=== PATIENT | female | born 1980 | race Caucasian/White ===

== ENCOUNTER → 2019-09-17 15:46 | Outpatient (CLI) | payer OTHER, MEDICAID, SELFPAY | PROVIDERS: Family Provider Obstetrics & Gynecology; Visit Provider Nurse Practitioner | DX: J02.9 Acute pharyngitis, unspecified (principal) | CPT/HCPCS: 87070 ==

== ENCOUNTER 2022-08-24 13:14 | Emergency (ER) | payer OTHER, MEDICAID, SELFPAY ==
[2022-08-24] VITALS (13 sets, daily range): BP systolic 142–171; BP diastolic 65–96; PULSE 72–109; RESP 16–20; TEMP 36.5; O2SAT 95–99; BMI 42.7
--- NOTE | 2022-08-24 13:34 | DI.CT.S_ITS ---
PROCEDURE: CT HEAD/BRAIN WO CON INDICATIONS: dizziness, blurry vision TECHNIQUE: Noncontrast 4.5 mm thick angled axial sections acquired from the foramen magnum to the vertex, with coronal and sagittal reformats. For radiation dose reduction, the following was used: automated exposure control, adjustment of mA and/or kV according to patient size. COMPARISON: None. FINDINGS: Image quality: Excellent. CSF spaces: Basal cisterns are patent. No extra-axial fluid collections. Ventricles are normal in size and shape. Brain: No midline shift. No intracranial masses or hemorrhage. [place]-white matter interface is normal. Skull and face: Calvarium and visualized facial bones are intact, without suspicious lesions. Sinuses: Visualized sinuses and mastoids are clear. IMPRESSION: No evidence acute intracranial process. Dictated by: Palmer Melendrez M.D. on 08/24/2022 at 14:05 Approved by: Palmer Melendrez M.D. on 08/24/2022 at 14:05
[2022-08-24 14:38] LABS: Add Manual Diff / Slide Review NO; Basophils Absolute Auto 0 /uL (0-100); Basophils Percent Auto 0.5 % (0-2); Eosinophils Absolute Auto 100 /uL (0-450); Eosinophils Percent Auto 0.8 % (2-4); Hematocrit 39.3 % (36-46); Hemoglobin 13.3 g/dL (12.0-16.0); Lymphocytes Absolute Auto 2100 /uL (1100-4500); Mean Corpuscular HGB Conc 33.9 % (30-36); Mean Corpuscular Hemoglobin 30.8 PG (26-34); Monocytes Absolute Auto 500 /uL (0-900); Monocytes Percent Auto 5.8 % (3-14); Neutrophils Absolute Auto 6000 /uL (1500-7000); Neutrophils Percent Auto 68.9 % (50-75); Platelet Count 318 X10^3/uL (150-400); Red Blood Cell Count 4.31 X10^6/uL (4.0-5.2); White Blood Cell Count 8.7 X10^3/uL (4.5-11.0)
[2022-08-24 14:51] LABS: Alanine Aminotransferase 18 IU/L (<35); Albumin 4.2 g/dL (3.5-5.0); Albumin Globulin Ratio 1.1 (1.0-2.8); Alkaline Phosphatase 104 U/L (38-126); Aspartate Aminotransferase 19 IU/L (14-36); BUN Creatinine Ratio 24.6 (6-22); Bilirubin Total 0.4 mg/dL (0.2-1.3); Blood Urea Nitrogen 15 mg/dL (7-17); Calcium 9.1 mg/dL (8.4-10.2); Carbon Dioxide 24 mmol/L (22-32); Chloride 105 mmol/L (98-107); Estimated Glomerular Filt Rate > 60 mL/min (>60); Globulin 3.9 g/dL (1.7-4.1); Glucose 90 mg/dL (70-100); HEMOLYSIS < 15 (0-50); Potassium 3.8 mmol/L (3.4-5.1); Sodium 138 mmol/L (137-145); Total Protein 8.1 g/dL (6.3-8.2)
--- NOTE | 2022-08-24 15:33 | DI.CT.S_ITS ---
PROCEDURE: CT ANGIO HEAD AND NECK INDICATIONS: speech difficulty TECHNIQUE: After the administration of intravenous contrast, 1 mm thick sections acquired from the aortic arch through the [place] of [place]. Post-contrast 4.5 mm thick sections then re-acquired from the foramen magnum to the vertex. 3-dimensional wbjstsv-snlkngjeg-xefaomhfzl (MIP) and/or volume rendering reformats were acquired of the central intracranial vasculature and neck separately. For radiation dose reduction, the following was used: automated exposure control, adjustment of mA and/or kV according to patient size. COMPARISON: [facility], CT, CT HEAD/BRAIN WO CON, 08/24/2022, 13:46. FINDINGS: Image quality: Excellent. BRAIN: CSF spaces: Ventricles are normal in size and shape. Basal cisterns are patent. No extra-axial fluid collections. Brain: No midline shift. No intracranial bleeds or masses. [place]-white matter interface appears intact. Skull and face: Calvarium and facial bones appear intact, without suspicious lesions. Orbits appear normal. Sinuses: Sinuses and mastoids are clear. HEAD CT ANGIOGRAPHY: Anterior circulation: Intracranial internal carotid arteries are normal in size and flow. The flow within the paired anterior cerebral arteries is normal and symmetric. The flow within the middle cerebral arteries is normal and symmetric. The anterior communicating artery is seen. No aneurysms are seen. Posterior circulation: The vertebral arteries are somewhat small. The left vertebral artery is dominant. The right vertebral artery is diminutive, and either ends in PICA or has a thrombosed V4 segment. The distal right vertebral artery at the V4 segment occludes. The proximal basilar artery is patent. There is a long segment occlusion or a combination of occlusion followed by minimal flow of the basilar artery which measures approximately 1.5 cm. The bilateral posterior cerebral arteries have a origin of the anterior circulation. Flow within the posterior cerebral arteries is normal and symmetric. No aneurysms are seen. NECK CT ANGIOGRAPHY: Carotid system: The great vessels demonstrate a conventional anatomy as they arise from the aortic arch. The origins of the common carotid arteries appear patent. The common carotid arteries demonstrate normal caliber and courses. The bifurcation regions are both widely patent. The internal carotid arteries demonstrate normal calibers and courses. Posterior circulation: The origins of the vertebral arteries are patent. The right vertebral artery is dominant and the left vertebral artery is diminutive. Both vertebral arteries are somewhat small. The right vertebral artery either ends in PICA or is occluded distally. The basilar artery is fed by the left vertebral artery. It is a small vessel and has either a long segment occlusion or occlusive embolus followed by minimal flow superiorly. Soft tissues: Visualized neck soft tissues demonstrate no suspicious abnormalities. Bones: No suspicious bony lesions. Visualized cervical spine appears normally aligned. IMPRESSION: 1. No evidence acute stroke, hemorrhage, or mass. 2. 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 There is origin of both posterior cerebral arteries from the anterior circulation. 3. The vertebral arteries are both somewhat diminutive. The left vertebral artery is dominant and the right vertebral artery is more diminutive. The right vertebral artery either ends in PICA or is thrombosed from its V4 segment. 4. The origins of the vertebral arteries are patent. The carotids are patent. Comment: Findings were discussed with Dr. Pearson on 08/24/2022 at 1626 hours Any quantitative measurements of stenosis were performed using NASCET criteria. Dictated by: Palmer Melendrez M.D. on 08/24/2022 at 16:25 Approved by: Palmer Melendrez M.D. on 08/24/2022 at 16:38
--- NOTE | 2022-08-24 15:35 | ED_ITS ---
HPI - Neuro Symptoms/Deficit General Chief Complaint: Dizziness Stated Complaint: dizzy/LT side of face hurts twitchy,blurred vision Time Seen by Provider: 08/24/22 14:44 Mode of arrival: Family Vehicle History of Present Illness HPI Narrative: Patient is a 42-year-old healthy female who presents today with Wednesday of symptoms. She says she was walking through [place] when she had some right- sided numbness and some left-sided blurry vision. She felt like her speech was abnormal as well. reports that she was talking gibberish she feels like her speech is slurred and that she is intoxicated. She is no longer having the symptoms. Symptoms started around 12 15 this afternoon. Resolved. No prior history of CVA hypertension hyperlipidemia or diabetes. On Anticoagulants: No Related Data Home Medications Medication Instructions Recorded Confirmed IBUPROFEN (#MOTRIN) 800 mg PO Q DAY PRN ##0 05/05/11 09/17/19 Allergies Allergy/AdvReac Type Severity Reaction Status Date / Time No Known Drug Allergies Allergy Verified 08/24/22 15:49 Review of Systems Review of Systems ROS Unobtainable: All systems reviewed & are unremarkable except as noted in HPI and below Hematologic/Lymphatic On Anticoagulants: No Patient History Social History Smoking Status: Former smoker Smoking Status: Former smoker Substance Use Type: does not use Exam Initial Vital Signs Initial Vital Signs: Vital Signs Temperature 97.7 F 08/24/22 13:26 Pulse Rate 72 08/24/22 13:26 Respiratory Rate 16 08/24/22 13:26 Blood Pressure 142/75 H 08/24/22 13:26 Pulse Oximetry 98 08/24/22 13:26 Oxygen Delivery Method 08/24/22 13:26 GENERAL: Alert tearful 42-year-old female BMI 36 and in no acute distress. HEENT: Head atraumatic,EOMI, pupils reactive, face symmetric, moist mucous membranes CARDIOVASCULAR: Regular rate and rhythm without murmurs, rubs or gallops. RESPIRATORY: Breath sounds equal bilaterally, no wheezes rales or rhonchi. ABDOMEN: Soft, nontender. Normoactive bowel sounds all 4 quadrants. No guarding or rebound. EXTREMITIES: Normal range of motion, no clubbing or edema. Neurovascularly intact NEUROLOGICAL: Alert and oriented x4.Normal gait and speech. Cranial nerves II through XII grossly intact. Good [id number], good [id number], strength e qual bilaterally, no dysarthria or aphasia, sensation in tact to soft touch bilaterally, no visual changes, no facial droop SKIN: Warm, dry, no laceration, no petechiae, no rashes or lesions. Scores NIH Stroke Scale Level of Conciousness: Alert, keenly responsive Ask month/age: Answers both questions correctly. Open/close eyes, close hand: Performs both tasks correctly Best gaze horizontal: Normal Visual piper: No visual loss Facial palsy: Normal symetrical movement Left arm drift: No drift for full 10 sec Right arm drift: No drift for full 10 sec Left leg drift: No drift for full 5 sec Right leg drift: No drift for full 5 sec Limb ataxia: Absent Sensory on face/arms/legs: Normal, no sensory loss Best language: Mild to moderate, slurs some words Dysarthria: Normal Extinction or inattention: No abnormality Total NIH Stroke scale score: 1 Course Orders Ordered: ED Orders 08/24/22 13:34 CT head/brain wo con Stat 08/24/22 14:25 Complete Blood Count AUTO DIFF Stat Comprehensive Metabolic Panel Stat Troponin & CK Cardiac Panel Stat 08/24/22 14:44 EKG-12 Lead Stat 08/24/22 15:33 CT angio head and neck Stat 08/24/22 15:44 COVID19 -Nasal RAPID/Pre-Proc Stat Discontinued Medications Aspirin (Aspirin 81 Mg Chew Tab) 324 mg PO NOW ONE Stop: 08/24/22 16:51 Last Admin: 08/24/22 17:07 Dose: 324 mg Documented By: PRESTON Clopidogrel Bisulfate (Clopidogrel 75 Mg Tablet) 300 mg PO NOW ONE Stop: 08/24/22 16:51 Last Admin: 08/24/22 17:07 Dose: 300 mg Documented By: PRESTON Sodium Chloride (Normal Saline 0.9%) 1,000 mls @ 1,000 mls/hr IV BOLUS ONE Stop: 08/24/22 18:07 Last Admin: 08/24/22 17:20 Dose: 1,000 mls/hr Documented By: PRESTON Ondansetron HCl (Ondansetron 4 Mg/2 Ml Inj) 4 mg IV NOW ONE Stop: 08/24/22 15:48 Last Admin: 08/24/22 15:54 Dose: 4 mg Documented By: MARYANN Ondansetron HCl (Ondansetron 4 Mg/2 Ml Inj) 4 mg IV NOW ONE Stop: 08/24/22 17:01 Last Admin: 08/24/22 17:07 Dose: 4 mg Documented By: PRESTON Vital Signs Vital signs: Vital Signs - 8 hr 08/24/22 13:26 08/24/22 15:24 08/24/22 15:26 Temperature 97.7 F Pulse Rate 72 108 H 90 Respiratory Rate 16 Blood Pressure 142/75 H Pulse Oximetry 98 95 99 Oxygen Delivery Method Room Air 08/24/22 15:26 08/24/22 15:30 08/24/22 15:31 Temperature Pulse Rate 86 88 Respiratory Rate Blood Pressure 161/83 H Pulse Oximetry 98 98 Oxygen Delivery Method 08/24/22 15:31 08/24/22 16:00 08/24/22 16:30 Temperature Pulse Rate 88 83 Respiratory Rate Blood Pressure 157/70 H Pulse Oximetry 99 96 Oxygen Delivery Method 08/24/22 16:41 08/24/22 16:40 08/24/22 16:40 Temperature Pulse Rate 81 Respiratory Rate Blood Pressure 144/65 H 144/65 H Pulse Oximetry 95 Oxygen Delivery Method 08/24/22 17:00 08/24/22 17:03 08/24/22 17:03 Temperature Pulse Rate 109 H 88 Respiratory Rate Blood Pressure 145/96 H Pulse Oximetry 99 96 Oxygen Delivery Method 08/24/22 17:30 08/24/22 17:31 08/24/22 17:31 Temperature Pulse Rate 85 86 Respiratory Rate 20 Blood Pressure 171/84 H Pulse Oximetry 97 97 Oxygen Delivery Method MDM - Neuro Symptoms/Deficit Lab Data Result diagrams: 08/24/22 14:25 08/24/22 14:25 Labs: Lab Results 08/24/22 08/24/22 08/24/22 Range/Units 14:25 14:25 14:25 WBC 8.7 (4.5-11.0) X10^3/uL RBC 4.31 (4.0-5.2) X10^6/uL Hgb 13.3 (12.0-16.0) g/dL Hct 39.3 (36-46) % MCV 91.0 (80-100) fL MCH 30.8 (26-34) PG MCHC 33.9 (30-36) % RDW 14.0 (11.6-14.8) % Plt Count 318 (150-400) X10^3/uL Neut % (Auto) 68.9 (50-75) % Lymph % (Auto) 24.0 L (25-40) % Carver % (Auto) 5.8 (3-14) % Eos % (Auto) 0.8 L (2-4) % Baso % (Auto) 0.5 (0-2) % Neut # (Auto) 6000 (4209-8636) /uL Lymph # (Auto) 2100 (4537-5985) /uL Carver # (Auto) 500 (0-900) /uL Eos # (Auto) 100 (0-450) /uL Baso # (Auto) 0 (0-100) /uL Sodium 138 (137-145) mmol/L Potassium 3.8 (3.4-5.1) mmol/L Chloride 105 (98-107) mmol/L Carbon Dioxide 24 (22-32) mmol/L BUN 15 (7-17) mg/dL Creatinine 0.61 (0.52-1.04) mg/dL Estimated GFR > 60 (>60) mL/min BUN/Creatinine Ratio 24.6 H (6-22) Glucose 90 (70-100) mg/dL Calcium 9.1 (8.4-10.2) mg/dL Total Bilirubin 0.4 (0.2-1.3) mg/dL AST 19 (14-36) IU/L ALT 18 (<35) IU/L Alkaline Phosphatase 104 (38-126) U/L Total Creatine Kinase 50 (30-135) U/L CK-MB (CK-2) TNP CK-MB (CK-2) Rel Index TNP Troponin I < 0.012 (0.01-0.034) ng/mL Total Protein 8.1 (6.3-8.2) g/dL Albumin 4.2 (3.5-5.0) g/dL Globulin 3.9 (1.7-4.1) g/dL Albumin/Globulin Ratio 1.1 (1.0-2.8) SARS-CoV-2 (PCR) (Negative) 08/24/22 Range/Units 15:44 WBC (4.5-11.0) X10^3/uL RBC (4.0-5.2) X10^6/uL Hgb (12.0-16.0) g/dL Hct (36-46) % MCV (80-100) fL MCH (26-34) PG MCHC (30-36) % RDW (11.6-14.8) % Plt Count (150-400) X10^3/uL Neut % (Auto) (50-75) % Lymph % (Auto) (25-40) % Carver % (Auto) (3-14) % Eos % (Auto) (2-4) % Baso % (Auto) (0-2) % Neut # (Auto) (2686-7071) /uL Lymph # (Auto) (3629-5871) /uL Carver # (Auto) (0-900) /uL Eos # (Auto) (0-450) /uL Baso # (Auto) (0-100) /uL Sodium (137-145) mmol/L Potassium (3.4-5.1) mmol/L Chloride (98-107) mmol/L Carbon Dioxide (22-32) mmol/L BUN (7-17) mg/dL Creatinine (0.52-1.04) mg/dL Estimated GFR (>60) mL/min BUN/Creatinine Ratio (6-22) Glucose (70-100) mg/dL Calcium (8.4-10.2) mg/dL Total Bilirubin (0.2-1.3) mg/dL AST (14-36) IU/L ALT (<35) IU/L Alkaline Phosphatase (38-126) U/L Total Creatine Kinase (30-135) U/L CK-MB (CK-2) CK-MB (CK-2) Rel Index Troponin I (0.01-0.034) ng/mL Total Protein (6.3-8.2) g/dL Albumin (3.5-5.0) g/dL Globulin (1.7-4.1) g/dL Albumin/Globulin Ratio (1.0-2.8) SARS-CoV-2 (PCR) Negative (Negative) Point of Care Testing Test Results Negative Urine Dip Bedside Urine Glucose Negative Bedside Urine Bilirubin - Negative Bedside Urine Ketone - Negative Urine Specific [place] 1.010 Bedside Urine Occult Blood ++ Bedside Urine pH 6.0 Bedside Urine Protein - Negative Bedside Urine Urobilinogen - Negative Bedside Urine Nitrite - Negative Bedside Urine Leukocytes - Negative Esterase Imaging Data CT scan - head: Radiologist's Impression: CT Scan Report Signed Patient: Mercedez Woodard MR#: [id number] : 1980 Acct:[id number] Age/Sex: 42 / F Date of Service: 08/24/22 Loc: ED Accession Number: [id number] ?? Procedure: CT head/brain wo con Ordering Provider: Kylah Pearson D.O. PROCEDURE:? CT HEAD/BRAIN WO CON ? INDICATIONS:? dizziness, blurry vision ? TECHNIQUE:? Noncontrast 4.5 mm thick angled axial sections acquired from the foramen magnum to the vertex, with coronal and sagittal reformats.? For radiation dose reduction, the following was used:? automated exposure control, adjustment of mA and/or kV according to patient size.? ? COMPARISON:? None. ? FINDINGS:? Image quality:? Excellent.? ? CSF spaces:? Basal cisterns are patent.? No extra-axial fluid collections.? Ventricles are normal in size and shape.? ? Brain:? No midline shift.? No intracranial masses or hemorrhage.? [place]-white matter interface is normal.? ? Skull and face:? Calvarium and visualized facial bones are intact, without suspicious lesions.? ? Sinuses:? Visualized sinuses and mastoids are clear.? ? IMPRESSION:? No evidence acute intracranial process. ? ? Dictated by: Palmer Melendrez M.D. on 08/24/2022 at 14:05 ? ? CTA - brain/neck: Radiologist's Impression: CT Scan Report Signed Patient: Mercedez Woodard MR#: [id number] : 1980 Acct:[id number] Age/Sex: 42 / F Date of Service: 08/24/22 Loc: ED Accession Number: [id number] ?? Procedure: CT angio head and neck Ordering Provider: Kylah Pearson D.O. PROCEDURE:? CT ANGIO HEAD AND NECK ? INDICATIONS:? speech difficulty ? TECHNIQUE:? After the administration of intravenous contrast, 1 mm thick sections acquired from the aortic arch through the [place] of [place].? Post-contrast 4.5 mm thick sections then re-acquired from the foramen magnum to the vertex.? 3-dimensional gcxcqan-packookvd-pmunxgpumc (MIP) and/or volume rendering reformats were acquired of the central intracranial vasculature and neck separately. For radiation dose reducti on, the following was used:? automated exposure control, adjustment of mA and/or kV according to patient size.? ? COMPARISON:? [facility], CT, CT HEAD/BRAIN WO CON, 08/24/2022, 13:46. ? FINDINGS:? Image quality:? Excellent.? ? BRAIN:? CSF spaces:? Ventricles are normal in size and shape.? Basal cisterns are patent.? No extra-axial fluid collections.? ? Brain:? No midline shift.? No intracranial bleeds or masses.? [place]-white matter interface appears intact.? ? Skull and face:? Calvarium and facial bones appear intact, without suspicious lesions.? Orbits appear normal.? ? Sinuses:? Sinuses and mastoids are clear.? ? HEAD CT ANGIOGRAPHY:? Anterior circulation:? Intracranial internal carotid arteries are normal in size and flow.? The flow within the paired anterior cerebral arteries is normal and symmetric.? The flow within the middle cerebral arteries is normal and symmetric.? The anter ior communicating artery is seen.? No aneurysms are seen.? ? Posterior circulation:? The vertebral arteries are somewhat small.? The left vertebral artery is dominant.? The right vertebral artery is diminutive, and either ends in PICA or has a thrombosed V4 segment.? The distal right vertebral artery at the V4 segment occludes.? The proximal basilar artery is patent.? There is a long segment occlu kira or a combination of occlusion followed by minimal flow of the basilar artery which measures approximately 1.5 cm.? The bilateral posterior cerebral arteries have a origin of the anterior circulation.? Flow within the posterior cerebral arteries is normal and symmetric.? No aneurysms are seen.? ? NECK CT ANGIOGRAPHY:? Carotid system:? The great vessels demonstrate a conventional anatomy as they arise from the aortic arch.? The origins of the common carotid arteries appear patent.? The common carotid arteries demonstrate normal caliber and courses.? The bifurcation regions are both widely patent.? The internal carotid arteries demonstrate normal calibers and courses.? ? Posterior circulation:? The origins of the vertebral arteries are patent.? The right vertebral artery is dominant and the left vertebral artery is diminutive.? Both vertebral arteries are somewhat small.? The right vertebral artery either ends in PICA or is occluded distally.? The basilar artery is fed by the left vertebral artery.? It is a small vessel and has either a long segment occlusion or occlusive embolus followed by minimal flow superiorly.? ? Soft tissues:? Visualized neck soft tissues demonstrate no suspicious abnormalities.? ? Bones:? No suspicious bony lesions.? Visualized cervical spine appears normally aligned.? IMPRESSION:? ? 1. No evidence acute stroke, hemorrhage, or mass. ? 2. 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 There is origin of both posterior cerebral arteries from the anterior circulation. ? 3. The vertebral arteries are both somewhat diminutive.? The left vertebral artery is dominant and the right vertebral artery is more diminutive.? The right vertebral artery either ends in PICA or is thrombosed from its V4 segment. ? 4. The origins of the vertebral arteries are patent.? The carotids are patent. ? Comment: Findings were discussed with Dr. Pearson on? 08/24/2022 at 1626 hours ? ? Any quantitative measurements of stenosis were performed using NASCET criteria.? ? ? Dictated by: Palmer Melendrez M.D. on 08/24/2022 at 16:25 ? ? ECG Data Interpretation: Normal sinus rhythm rate 80 MA interval 156 QRS [address] changes MDM Narrative Medical decision making narrative: Patient is a healthy 42-year-old female who some possible TIA symptoms. Numbness on the right side vision not necessarily consistent with CVA. Symptoms have resolved she does have a lower retainer which might be what is causing little bit of her slurring of speech for us however she feels like her speech is a little bit different. No facial droop or any other focal deficits. She has not passed out no fevers chills or other symptoms. Blood work today is overall reassuring. No evidence of infection no leukocytosis no electrolyte abnormality no elevated troponin. Head CT initially is negative. Upon further re-evaluation patient really does have some word-finding difficulty she is an NIH stroke scale of 1. No worsening Symptoms. CT angio confirms occlusion of the basilar artery. Dr. Melendrez called to inform me at [address] Lucia stroke DrMary Ann Has been consulted. She is waiting to review the CT angio and then she did call back. She does recommend an MRA aspirin 325 Plavix 300 and a fluid bolus. Patient is certainly out of the tPA window unlikely to have received tPA earlier as well due to her low NIH stroke scale. She does recommend that patient be transferred to [place], based on patient's potential to decompensate. I have discussed this with patient and . We discussed modes of t ransportation including ground and airlift. At this time based on time of day patient has potential to decompensate in need for urgent neurology evaluation recommend airlift. This time they agree. Patient is becoming extremely nauseous and dizzy unable to stand to urinate. 1730-patient had inability to move right arm lasted 1-2 minutes and then completely regained strength. Airlift is on the way, expected any minute MDM CC: Numbness double vision speech difficulty Complicating co-morbidities: Obesity Corroborating data: Data collected from: [ ] Medical records reviewed: None Differential considered: TIA, CVA, near syncope, sepsis, electrolyte abnormality Exam documented above, pertinent findings include: Some word-finding dysarthria Lab Test results independently reviewed as above. Pertinent findings: No abnormalities Independently reviewed EKG as above Imaging studies independently reviewed: Consultations: Stroke Dr. 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 The aggregate critical care time was [45] minutes. This time is in addition to time spent performing reported procedures but includes the following: [x] Data Review and interpretation [x] Patient assessment and monitoring of vital signs [x] Documentation [x] Medication orders and management Discharge Plan Departure Patient Disposition: [facility] Clinical Impression: CVA (cerebral vascular accident) Prescriptions: No Action IBUPROFEN (#MOTRIN) 800 mg PO Q DAY PRN Qty: 0 Referrals: Miscellaneous,DoctorMD [Primary Care Provider] -
--- NOTE | 2022-08-24 15:40 | PC.NURSE ---
pt reports onset at 1215 of dizziness, tingly lips, double vision on left face and reports speech off gibberish pt now reports i sound like im drunk, double vision gone to left eye, right side of face and body feels tingly, nausea, and sinus pressure, dizziness NIH 1 only for pt reports of sounding like im drunk but rn cannot discern slurring of words. pt reports earlier today during episode start she had some twitching of eye along with the double vision. pt at bs. pt tearful and upset for triage.
[2022-08-24 15:50] LABS: Creatine Kinase 50 U/L (30-135)
[2022-08-24] MEDS: ONDANSETRON 4 MG/2 ML INJ IV ×2 (15:54→17:07)
[2022-08-24 16:01] LABS: COVID19 -Nasal RAPID Negative (Negative)
[2022-08-24 16:01] LABS: Troponin I < 0.012 ng/mL (0.01-0.034)
[2022-08-24] MEDS: CLOPIDOGREL 75 MG TABLET 300 MG PO (17:07)
[2022-08-24] MEDS: ASPIRIN 81 MG CHEW TAB 324 MG PO (17:07)
--- NOTE | 2022-08-24 17:10 | PC.NURSE ---
episode of nausea with sitting on bedside commode, zofran given
[2022-08-24] MEDS: SODIUM CHLORIDE 0.9% 1,000 ML 1000 ML IV (17:20)
== END 2022-08-24 18:07 | disposition short-term general hospital (02) ==
PROVIDERS: Emergency Provider Emergency Medicine; Family Provider Obstetrics & Gynecology
DX: I63.9 Cerebral infarction, unspecified (principal); H53.8 Other visual disturbances; E66.9 Obesity, unspecified; Z68.41 Body mass index [BMI] 40.0-44.9, adult; Z20.822 Contact with and (suspected) exposure to COVID-19
CPT/HCPCS: 36415; 70450; 70496; 70498; 80053; 81003; 81025; 82550; 84484; 85025; 87635; 93005; 96374; 96376; 99285; 99291; 99292; C9803; J2405; Q9967

== ENCOUNTER → 2022-10-02 11:01 | Outpatient (CLI) | payer OTHER, MEDICAID, SELFPAY ==
[2022-10-02 12:08] LABS: Alanine Aminotransferase 27 IU/L (<35); Albumin Globulin Ratio 1.2 (1.0-2.8); Alkaline Phosphatase 97 U/L (38-126); Aspartate Aminotransferase 22 IU/L (14-36); BUN Creatinine Ratio 21.4 (6-22); Bilirubin Total 0.2 mg/dL (0.2-1.3); Blood Urea Nitrogen 9 mg/dL (7-17); Calcium 9.1 mg/dL (8.4-10.2); Carbon Dioxide 24 mmol/L (22-32); Chloride 105 mmol/L (98-107); Estimated Glomerular Filt Rate > 60 mL/min (>60); Globulin 3.4 g/dL (1.7-4.1); Glucose 80 mg/dL (70-100); HEMOLYSIS < 15 (0-50); Sodium 137 mmol/L (137-145); Total Protein 7.4 g/dL (6.3-8.2)
== END ==
PROVIDERS: Family Provider Obstetrics & Gynecology; PCP Family Medicine; Referring Provider Family Medicine; Visit Provider Family Medicine
DX: E78.5 Hyperlipidemia, unspecified (principal)
CPT/HCPCS: 36415; 80053

== ENCOUNTER 2022-11-11 10:09 | Outpatient (RCR) | payer OTHER, MEDICAID, SELFPAY ==
--- NOTE | 2022-11-11 15:30 | OT.OP.EVAL ---
Visit Care Team Role Provider Type Kayla Walker DO Family Provider Physician Primary Care Provider Specialty: Family Practice Address: [address] [place] [address], [address], [place], [address] Email: [email or web address] Antionette Carrasco MD Attending Provider Non-Staff Referring Provider Specialty: Medical Address: [address] [place] [address], [place] [id number], [place], [address] Email: Occupational Therapy Initial Evaluation OT Outpatient Adult Evaluation Start: 11/11/22 15:44 Freq: Status: Active Protocol: Document 11/11/22 15:45 AMS (Rec: 11/11/22 16:09 AMS [id number]) General Information - Adult Visit Number 1 Plan of Care Dates 11/11/22 - 01/06/23 Insurance Information [employer]; 24 total PT & OT combined visits per calendar year. Visit Start Time 10:30 Visit Stop Time 11:15 Total Visit Minutes 45 Treatment Setting Outpatient Care Note Type Initial Evaluation Goals Treatment Discussion re: establishment of goals. Provision of green medium firm theraputty; discussion of alternative pinching of putty to support strengthening. Short Term Goals 1. Mercedez will present with improved pain-free range of motion of the right upper extremity to support functional independence: 1a. Mercedez will be able to place right hand on back of head, 4 out of 5 trials, without complaints of pain and /or discomfort, which will support ability to manage hair (e.g., put hair in ponytail). 1b. Mercedez will demonstrate 0 to 110 degrees active pain- free sh flexion. 1c. Mercedez will demonstrate 0 to 110 degrees active pain- free sh abduction. Assisted Goals 1. Mercedez will be modified independent with execution of home exercise program with support of family utilizing provided written and visual instructions from therapist. 2. Mercedez will present with improved functional independence; this will be evidenced by obtaining a QuickDASH UE Outcome Score that is less than 50.00. Assessment/Plan Treatment Assessment Mercedez is a 42 year-old right hand dominant female referred to outpatient OT secondary to residual effects of basilar artery occlusion. Mercedez was accompanied by her to initial evaluation and treatment. Patient resides w/ family; she has a 19 y.o. daughter and a 13 y.o. son. She had recently left a bankruptcy assistant position and was seeking new employment when the occlusion occurred. PLOF = Independent w/ BADLs and IADLS; driving self; enjoys reading in free time. PMH significant for benign essential HTN; hyperlipidemia; muscle weakness; thrombotic stroke involving basilar artery. Current HEP includes use of yellow theraputty and picking up small cough drops and approx 1-inch in diameter objects with the right hand and placing them in a bowl. Mercedez is being seen by outpatient PT and will be eval by outpatient GEM SETTER in near future. Patient goals = improve function of right arm/ ROM and work on 'cutting stuff '/meal preparation. Evaluation Findings = Mecredez currently requires min phys assist with undressing and dressing; able to successfully tie 1 of her shoes; min phys assist with bathing (utilizing tub bench, HSH, no grab bars) ; feeding self w/ L hand and using R hand to assist w/ drinking/managing cup; mod independent w/ toileting utilizing L hand for hygiene; assist with putting earrings in and putting hair up in ponytail; is doing the meal preparation/managing finances (does have automatic withdrawal for some bills) and cleaning the home; is also managing her 6 different medications utilizing a weekly mediset; she is typing w/ 1 finger w/ keyboarding w/ R hand; Mercedez is dependent w/ community mobility (is not driving); she arrived in manual w/c and reportedly utilizes SPC within the home and is quite 'wobbly'. Indicated 1 out of 10 on Pain Scale relative to R 4th and 5th digits, R upper extremity/ right scapula and R LE. QuickDASH UE Outcome Measure Score = 79.55. Able to oppose thumb to each digit pad bilaterally w/ EO and EC; decreased speed and efficiency noted w/ R hand. Slight midline shift to the right w/ bringing arms to center infront of body. Denied change in sensation of the R UE; report of numbness/tingling of the L UE w/ time of onset - occlusion. Able to place both hands on top of head (R more difficult then L); unable to place R hand on lower back. Full AROM of L UE. 0-80 degrees active R sh flex; 0-80 degrees active R sh abd; 0-40 degrees active R sh ext; 0-65 degrees active R sh ER; full R sh IR; 0-125 degrees active R elbow flexion; full elbow extension; WFL R forearm supination/pronation, R wrist ROM, and digit ROM. Non-verbal signs of pain/discomfort w/ passive sh flex/sh abd when in sitting. (-) g/h subluxation noted. Able to fully extend all digits and form tight fist . Tendency into flex of R 5th PIPJ; report of this tendency since being a child. Full PROM available at the [facility]. Obtained writing sample given completed intake paperwork; dynamic grasp observed w/ 2nd digit pad positioned on pen w/ pen resting on 3rd digit; no breaks observed between formation of letters w/ overall, increased time needed to write first and last name and address. See scanned document. Mercedez would likely benefit from outpatient OT to address R UE range of motion, R UE pain/discomfort, motor dyscoordination, functional motor planning/modifications/ adaptations, education, and establishment of HEP in order to support her success with engagement in and completion of meaningful activities, including functional activities of daily living. Length of treatment (weeks) 8 Plan of Care Start Date 11/11/22 Plan of Care End Date 01/06/23 Comment Insurance limitations; 24 combined OT & PT; 1 x wk vs 1 x every other wk Therapeutic Contents Active Range of Motion, Adaptive Equipment Education, Client Education,Cognitive Skills Development,Functional Activities,Home Exercise Program,Joint Protection, Manual Therapy,Education, Neurodevelopment Treatment, Neuromuscular Re-Education, Self-Care,Stretching/ Flexibility Activities, Therapeutic Activities, Therapeutic Exercises, Modalities,Sensory Re- education Modalities As Needed,As Prescribed
--- NOTE | 2022-12-02 17:43 | OT.OP.DC ---
Visit Care Team Role Provider Type Kayla Walker DO Family Provider Physician Primary Care Provider Address: [address] [place] [address], [address], [place], [address] Email: [email or web address] Antionette Carrasco MD Attending Provider Non-Staff Referring Provider Address: [address] [place] [address], [place] [id number], [place], [address] Email: OT Outpatient OT Outpatient Adult Evaluation Start: 11/11/22 15:44 Freq: Status: Active Protocol: Document 11/11/22 15:45 AMS (Rec: 11/11/22 16:09 AMS [id number]) General Information - Adult Visit Information Visit Number 1 Plan of Care Dates 11/11/22 - 01/06/23 Insurance Information [employer]; 24 total PT & OT combined visits per calendar year. Session Time Visit Start Time 10:30 Visit Stop Time 11:15 Total Visit Minutes 45 Setting Treatment Setting Outpatient Care Visit Type Note Type Initial Evaluation Goals Treatment Treatment Discussion re: establishment of goals. Provision of green medium firm theraputty; discussion of alternative pinching of putty to support strengthening. Short Term Goals Short Term Goals 1. Mercedez will present with improved pain-free range of motion of the right upper extremity to support functional independence: 1a. Mercedez will be able to place right hand on back of head, 4 out of 5 trials, without complaints of pain and /or discomfort, which will support ability to manage hair (e.g., put hair in ponytail). 1b. Mercedez will demonstrate 0 to 110 degrees active pain- free sh flexion. 1c. Mercedez will demonstrate 0 to 110 degrees active pain- free sh abduction. Work Environment Safety Inspector Goals Nursing Home Goals 1. Mercedez will be modified independent with execution of home exercise program with support of family utilizing provided written and visual instructions from therapist. 2. Mercedez will present with improved functional independence; this will be evidenced by obtaining a QuickDASH UE Outcome Score that is less than 50.00. Assessment/Plan Assessment Treatment Assessment Mercedez is a 42 year-old right hand dominant female referred to outpatient OT secondary to residual effects of basilar artery occlusion. Mercedez was accompanied by her to initial evaluation and treatment. Patient resides w/ family; she has a 19 y.o. daughter and a 13 y.o. son. 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 PLOF = Independent w/ BADLs and IADLS; driving self; enjoys reading in free time. PMH significant for benign essential HTN; hyperlipidemia; muscle weakness; thrombotic stroke involving basilar artery. Current HEP includes use of yellow theraputty and picking up small cough drops and approx 1-inch in diameter objects with the right hand and placing them in a bowl. Mercedez is being seen by outpatient PT and will be eval by outpatient MENS LOCKER ROOM ATTENDANT in near future. Patient goals = improve function of right arm/ ROM and work on 'cutting stuff '/meal preparation. Evaluation Findings = Mercedez currently requires min phys assist with undressing and dressing; able to successfully tie 1 of her shoes; min phys assist with bathing (utilizing tub bench, HSH, no grab bars) ; feeding self w/ L hand and using R hand to assist w/ drinking/managing cup; mod independent w/ toileting utilizing L hand for hygiene; assist with putting earrings in and putting hair up in ponytail; is doing the meal preparation/managing finances (does have automatic withdrawal for some bills) and cleaning the home; is also managing her 6 different medications utilizing a weekly mediset; she is typing w/ 1 finger w/ keyboarding w/ R hand; Mercedez is dependent w/ community mobility (is not driving); she arrived in manual w/c and reportedly utilizes SPC within the home and is quite 'wobbly'. Indicated 1 out of 10 on Pain Scale relative to R 4th and 5th digits, R upper extremity/ right scapula and R LE. QuickDASH UE Outcome Measure Score = 79.55. Able to oppose thumb to each digit pad bilaterally w/ EO and EC; decreased speed and efficiency noted w/ R hand. Slight midline shift to the right w/ bringing arms to center infront of body. Denied change in sensation of the R UE; report of numbness/tingling of the L UE w/ time of onset - occlusion. Able to place both hands on top of head (R more difficult then L); unable to place R hand on lower back. Full AROM of L UE. 0-80 degrees active R sh flex; 0-80 degrees active R sh abd; 0-40 degrees active R sh ext; 0-65 degrees active R sh ER; full R sh IR; 0-125 degrees active R elbow flexion; full elbow extension; WFL R forearm supination/pronation, R wrist ROM, and digit ROM. Non-verbal signs of pain/discomfort w/ passive sh flex/sh abd when in sitting. (-) g/h subluxation noted. Able to fully extend all digits and form tight fist . Tendency into flex of R 5th PIPJ; report of this tendency since being a child. Full PROM available at the PIPJ. Obtained writing sample given completed intake paperwork; dynamic grasp observed w/ 2nd digit pad positioned on pen w/ pen resting on 3rd digit; no breaks observed between formation of letters w/ overall, increased time needed to write first and last name and address. See scanned document. Mercedez would likely benefit from outpatient OT to address R UE range of motion, R UE pain/discomfort, motor dyscoordination, functional motor planning/modifications/ adaptations, education, and establishment of HEP in order to support her success with engagement in and completion of meaningful activities, including functional activities of daily living. Plan Length of treatment (weeks) 8 Plan of Care Start Date 11/11/22 Plan of Care End Date 01/06/23 Comment Insurance limitations; 24 combined OT & PT; 1 x wk vs 1 x every other wk Therapeutic Contents Active Range of Motion, Adaptive Equipment Education, Client Education,Cognitive Skills Development,Functional Activities,Home Exercise Program,Joint Protection, Manual Therapy,Education, Neurodevelopment Treatment, Neuromuscular Re-Education, Self-Care,Stretching/ Flexibility Activities, Therapeutic Activities, Therapeutic Exercises, Modalities,Sensory Re- education Modalities As Needed,As Prescribed Functional Wrist/Hand Scan Hand Side Sensory Assessment Sensory Profile2 OT Outpatient Muscle Testing Start: 11/11/22 15:44 Freq: Status: Active Protocol: Document 11/11/22 15:45 AMS (Rec: 11/11/22 16:09 AMS [id number]) Underwriting Assistant/Hand Strength Underwriting Assistant/Hand Strength Left Underwriting Assistant Dynamometer II 60.0 Lateral Pinch Strengh (lbs) 15.0 Palmar Pinch Strength (lbs) 11.0 Tip Pinch Strength (lbs) 11.0 Comments 11/11/22 = Initial Findings L Underwriting Assistant = 40-44 y.o. women = 62 .3 +/- 13.8# of force = within 1 SD below the mean L Lateral Pinch = 40-44 y.o. women = 15.8 +/- 3.1# of force = within 1 SD below the mean L 3-jaw Pinch = 40-44 y.o. women = 16.6 +/- 3.5# of force = > 1 SD below the mean L Tip Pinch = 40-44 y.o. women = 11.1 +/- 3.0# of force = within 1 SD below the mean Right Underwriting Assistant Dynamometer II 25.0 Lateral Pinch Strengh (lbs) 11.0 Palmar Pinch Strength (lbs) 7.0 Tip Pinch Strength (lbs) 5.0 Comments 11/11/22 = Initial Findings R Underwriting Assistant = 40-44 y.o. women = 70 .4 +/- 13.5# of force = > 3 SD below the mean R Lateral Pinch = 40-44 y.o. women = 16.7 +/- 3.1# of force = > 1 SD below the mean R 3-jaw Pinch = 40-44 y.o. women = 17.0 +/- 3.1# of force = > 3 SD below the mean R Tip Pinch = 40-44 y.o. women = 11.5 +/- 2.7# of force = > 2 SD below the mean OT Outpatient Treatment Note - Adult Start: 11/11/22 15:44 Freq: Status: Active Protocol: Document 12/02/22 17:41 [facility] (Rec: 12/02/22 17:43 [facility] [id number]) OT Outpatient Adult Treatment Note Visit Information Plan of Care Dates 11/11/22 - 01/06/23 Setting Treatment Setting Outpatient Care Visit Type Note Type Discharge Summary - Subjective Observations Per [facility] desk staff, patient has requested d /c from outpatient OT d/t insurance limitations. Patient to focus on outpatient physical therapy. - Objective Short Term Goals ALL GOALS D/C 12/02/22 1. Mercedez will present with improved pain-free range of motion of the right upper extremity to support functional independence: 1a. Mercedez will be able to place right hand on back of head, 4 out of 5 trials, without complaints of pain and /or discomfort, which will support ability to manage hair (e.g., put hair in ponytail). 1b. Mercedez will demonstrate 0 to 110 degrees active pain- free sh flexion. 1c. Mercedez will demonstrate 0 to 110 degrees active pain- free sh abduction. Work Environment Safety Inspector Goals ALL GOALS D/C 12/02/22 1. Mercedez will be modified independent with execution of home exercise program with support of family utilizing provided written and visual instructions from therapist. 2. Mercedez will present with improved functional independence; this will be evidenced by obtaining a QuickDASH UE Outcome Score that is less than 50.00. - - Assessment Assessment of Improvement Per [facility] front desk worker staff, patient has requested d /c from outpatient OT d/t insurance limitations. Patient to focus on outpatient physical therapy. - Plan Therapy Recommendations Discharge from Occupational Therapy
== END 2022-12-03 11:34 | disposition home or self-care (01) ==
LOC: OT 10:09
PROVIDERS: Family Provider Family Medicine; PCP Family Medicine; Referring Provider Physical Medicine & Rehabilitation; Visit Provider Physical Medicine & Rehabilitation
DX: I63.9 Cerebral infarction, unspecified (principal)
CPT/HCPCS: 97165; 97530

== ENCOUNTER → 2023-12-21 10:50 | Outpatient (RCR) | payer OTHER, MEDICAID, SELFPAY ==
--- NOTE | 2022-11-16 12:24 | ST.OPIE ---
Visit Care Team Role Provider Type Kayla Walker DO Family Provider Physician Primary Care Provider Specialty: Family Practice Address: [address] [place] [address], [address], [place], [address] Email: [email or web address] Antionette Carrasco MD Attending Provider Non-Staff Referring Provider Specialty: Medical Address: [address] [place] [address], [place] [address], [place], [address] Email: Speech-Language Pathology Initial Evaluation PHLEBOTOMY MANAGER Adult Cognitive Linguistic Eval Start: 11/16/22 11:20 Freq: Status: Active Protocol: Document 11/16/22 11:20 CG (Rec: 11/16/22 12:24 CG [id number]) Adult Cognitive Linguistic Evaluation Session Time Visit Start Time 10:33 Visit Stop Time 11:15 Total Visit Minutes 42 Visit Information Visit Number 1 Plan of Care Dates 11/16/22-01/02/23 Referral Referring Provider Antionette Carrasco Reason for Referral dysarthria and aphasia 2/CVA Setting Assessment Location Outpatient Care Visit Type Note Type Initial evaluation Next Note Type Next Note Type Treatment Note Patient Information Identification Type Name Patient History Pt experienced a left pontine and right thalamic stroke on . 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 Throughout her hospital stay, pt was treated by PT/OT/ST. 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 Initially, a G tube was placed for nutrition. However, her diet was advanced throughout her stay in acute care and dysarthria began to resolve. Pt was admitted to inpatient rehabilitation after d/c from acute care, where she continued to receive PT/OT /ST. Limited ST documentation is available from IP rehab; however, per pt report and PCP notes she continued to work on dysarthria and resolving dysphagia. She states that she mostly worked on swallowing exercises as well as exercises for prosody due to monotone affect. Pt is now on a diet of regular solids and thin liquids. She continues to c/o dysarthria and occasional word-finding difficulties, which she states occur 4-5 times/day. She states she is not concerned about her problem solving or memory and feels they are at baseline. Language(s) Spoken in the Home [employer] Education Level 9th grade Occupation Status Unknown Hearing Hearing Level Normal Auditory History No significant auditory history Vision Vision Status Not Impaired Previous Therapy Previous Speech-Language Therapy Yes History of Therapy Pt was seen by acute care ST while inpatient following her stroke. She initially presented with dysphagia and a feeding tube was placed, though this has since resolved and she is now on a regular diet. After d/c from the hospital, she was admitted to inpatient rehab where she completed ST/OT/PT. Limited ST treatment notes are available in pt's file at this time; however, pt states she was working with PHLEBOTOMY MANAGER on intonation (due to psuedobulbar affect) as well as exercises for dysarthria. Subjective Patient Report Pt arrived with her to the appt. Her assisted in pushing her wheelchair to the therapy room . Pt did not report any pain but stated she continues to experience some lingual numbness. Mental Status Alert,Responsive,Cooperative Assessment Oral Motor Examination Completed Yes Results Mild R sided lingual weakness on lateral press task. Mild dysarthria characterized by reduced clarity of plosive phonemes, and slowed rate of speech. Informal Assessment Receptive Language Normal Yes Receptive Language Impairment(s) Comprehension of simple yes/no questions,Comprehension of complex yes/no questions, Following 1-step commands, Following 2-step commands, Picture/Object identification, Comprehension of conversation Expressive Language Normal No: C/o word finding difficulties Pragmatic Language Normal No: Monotone prosody Pragmatic Language Impairment(s) Flat affect Speech Normal No Speech Impairment(s) Imprecise articulation,Slow speech rate Cognition Normal Yes: Mild working memory deficits but pt states this is baseline Formal Assessment Standardized Test/Screener Type Quick Aphasia Battery (QAB) Administration Complete Results Both the [facility] Mental Status Exam (UMS) and the Quick Aphasia Battery ( QAB) were completed. Results are as follows: SLUMS: Pt scored a 23/30. Scores between 25-30 are considered normal for pts with less than high school education. Scored 20-24 are considered to be consistent with mild neurocognitive disorder. Pt demonstrated the most difficulty with number reversal task, which significantly decreased her score. She states this is baseline and she always has to write down numbers in order to manipulate them. Additionally, pt demonstrated some difficulty answering questions about a short story read aloud. When asked for details related to the story, she stated she wasn't paying attention to certain details ( such as the location of the story). Overall, the pt's score does fall into the range of neurocognitive disorder, but her cognition does not impact her daily life per her and her 's report. Will continue to monitor, but pt feels she is at baseline. QAB: Mercedez's scores were as follows for each subtest: -Word comprehension: 100% -Sentence comprehension: 100% -Word findin% -Grammatical construction: 92. 5% -Speech motor programmin % -Repetition: 95.8% -Readin.7% -QAB overall: 95.9% (9.59) The creators of the QAB indicate that QAB overall scores between 8.9 to 10.0 indicate no aphasia based on correspondence with the Western Aphasia Battery. However, throughout the assessment, the pt did present with reduced rate of speech and flat affect. Additionally , she states she continues to have word-finding difficulties and paraphasias throughout daily life, which her endorses. Findings/Results Language Function Mildly impaired Cognitive Function Within functional limits Findings Mild word-finding deficits per pt and report, though not captured in QAB. Pt presents with flat affect/ monopitch speech and slowed rate of speech, as well as imprecise articulation of plosives. Cognitive Communication Deficits Self-awareness of Cognitive- Predictive awareness (able to Communication Deficits predict problem; impact of impairments) Concomitant Factors Concomitant Factors Hemiplegia/hemiparesis Impact on Functioning Activity Limits/Particip.Rest. Mild: Interpersonal Interactions Community Prognosis Prognosis Good Based on Family support,Duration of symptoms/severity Plan of Care Speech-Language Treatment Yes Frequency 1x every 2 weeks for 5 sessions Duration 5 sessions Patient/Caregiver Education Described results of evaluation,Patient expressed understanding of evaluation, Patient expressed agreement with goals and treatment plans ,Family/caregivers expressed understanding of evaluation, Family/caregivers expressed agreement with goals and treatment plan,Patient requires further education/ training Short Term Goals 1. The patient will participate in conversation at 80% intelligibility given frequent minimal verbal cues to utilize clear speech strategies in order to communicate thoughts, feelings , and needs. 2. The pt will complete word- finding exercises (including Semantic Feature Analysis) with 80% accuracy given minimal verbal cues. 3.The pt will produce sentences of various form ( questions, exlamatory, declarative) with appropriate prosody in 80% of opportunities in order to accurately portray meaning. Safety Administrator Goals 1. Pt will produce speech with rate and prosody deemed WFL in order to communicate simple and complex thoughts/feelings at the conversational level. 2. Pt will reduce instances of word finding difficulties to 1x/day or fewer in order to promote functional communication in the home environment. Discharge Recommendations Home
--- NOTE | 2022-11-16 12:25 | ST.OPPOC ---
Physical, Occupational & Speech Therapy At [facility] Visit Care Team Role Provider Type Kayla Walker DO Family Provider Physician Primary Care Provider Address: [address] [place] [address], [address], [place], [address] Antionette Carrasco MD Attending Provider Non-Staff Referring Provider Address: [facility] [place] [place] [address], [place], [address] Speech Pathology Plan of Care Plan of Care Dates 11/16/22-01/02/23 Referring Provider Antionette Carrasco Patient History Pt experienced a left pontine and right thalamic stroke on 08/24/22. 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 Throughout her hospital stay, pt was treated by PT/OT/ST. 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 Initially, a G tube was placed for nutrition. However, her diet was advanced throughout her stay in acute care and dysarthria began to resolve. Pt was admitted to inpatient rehabilitation after d/c from acute care, where she continued to receive PT/OT/ST. Limited ST documentation is available from IP rehab; however, per pt report and PCP notes she continued to work on dysarthria and resolving dysphagia. She states that she mostly worked on swallowing exercises as well as exercises for prosody due to monotone affect. Pt is now on a diet of regular solids and thin liquids. She continues to c/o dysarthria and occasional word-finding difficulties, which she states occur 4-5 times/day. She states she is not concerned about her problem solving or memory and feels they are at baseline. Self-awareness of Cognitive- Predictive awareness (abl Communication Deficits Interpersonal Interactions Mild Community Mild Short Term Goals 1. The patient will participate in conversation at 80% intelligibility given frequent minimal verbal cues to utilize clear speech strategies in order to communicate thoughts, feelings, and needs. 2. The pt will complete word-finding exercises ( including Semantic Feature Analysis) with 80% accuracy given minimal verbal cues. 3.The pt will produce sentences of various form (questions, exlamatory, declarative) with appropriate prosody in 80% of opportunities in order to accurately portray meaning. Fern Gatherer Goals 1. Pt will produce speech with rate and prosody deemed WFL in order to communicate simple and complex thoughts/feelings at the conversational level. 2. Pt will reduce instances of word finding difficulties to 1x/day or fewer in order to promote functional communication in the home environment. Comment: Electronically Signed by: JACKIE Espitia 11/16/22 1670 If you are in agreement with this Plan of Care, please return a signed and dated copy. I have reviewed this Plan of Care and certify that the skilled therapy services above are required to meet the patient?s needs. Physician Signature Date Printed Name and Credentials Clinical Instructor Signature Printed Name and Credentials
--- NOTE | 2023-12-16 15:20 | ST.OPDS ---
Visit Care Team Role Provider Type Kayla Walker DO Family Provider Physician Primary Care Provider Address: [address] [place] [address], [address], [place], [address] Antionette Carrasco MD Attending Provider Non-Staff Referring Provider Address: [address] [place] [address], [place] [address], [place], [address] SAFETY GROOVING MACHINE OPERATOR Discharge Summary SAFETY GROOVING MACHINE OPERATOR Discharge Summary Start: 12/16/23 15:18 Freq: Status: Active Protocol: Document 12/16/23 15:19 CG (Rec: 12/16/23 15:20 CG [id number]) Speech Pathology Treatment Note Visit Information Plan of Care Dates 11/16/22-01/02/23 Setting Treatment Setting Outpatient Care Visit Type Note Type Discharge Summary General Information Patient History Pt experienced a left pontine and right thalamic stroke on . 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 Throughout her hospital stay, pt was treated by PT/OT/ST. 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 Initially, a G tube was placed for nutrition. However, her diet was advanced throughout her stay in acute care and dysarthria began to resolve. Pt was admitted to inpatient rehabilitation after d/c from acute care, where she continued to receive PT/OT /ST. Limited ST documentation is available from IP rehab; however, per pt report and PCP notes she continued to work on dysarthria and resolving dysphagia. She states that she mostly worked on swallowing exercises as well as exercises for prosody due to monotone affect. Pt is now on a diet of regular solids and thin liquids. She continues to c/o dysarthria and occasional word-finding difficulties, which she states occur 4-5 times/day. She states she is not concerned about her problem solving or memory and feels they are at baseline. Objective Short Term Goals 1. The patient will participate in conversation at 80% intelligibility given frequent minimal verbal cues to utilize clear speech strategies in order to communicate thoughts, feelings , and needs. 2. The pt will complete word- finding exercises (including Semantic Feature Analysis) with 80% accuracy given minimal verbal cues. 3.The pt will produce sentences of various form ( questions, exlamatory, declarative) with appropriate prosody in 80% of opportunities in order to accurately portray meaning. Road Crew Member Goals 1. Pt will produce speech with rate and prosody deemed WFL in order to communicate simple and complex thoughts/feelings at the conversational level. 2. Pt will reduce instances of word finding difficulties to 1x/day or fewer in order to promote functional communication in the home environment. Treatment Activities Pt did not attend therapy after initial evaluation and development of POC. D/c due to no account activity. Assessment Assessment of Improvement D/c due to no account activity after initial evaluation.
== END | disposition home or self-care (01) ==
LOC: SP 11-16 10:12
PROVIDERS: Family Provider Family Medicine; PCP Family Medicine; Referring Provider Physical Medicine & Rehabilitation; Visit Provider Physical Medicine & Rehabilitation
DX: I63.9 Cerebral infarction, unspecified (principal)
CPT/HCPCS: 92523

== ENCOUNTER → 2025-07-31 12:56 | Outpatient (CLI) | payer OTHER, SELFPAY ==
--- NOTE | 2025-07-31 12:56 | DI.MG.S_ITS ---
MM screening mammo BI: 07/31/2025. BI-RADS: 1 CLINICAL: 45-year old female for bilateral screening mammogram. Tyrer-Cuzick lifetime risk of 6.5%. No personal or first-degree family history of breast cancer. Current reported family history of breast cancer: maternal aunt. PRIOR EXAMS: None. This is a baseline mammogram. MAMMOGRAPHY TECHNIQUE: 2D and 3D (tomosynthesis) digital mammographic views obtained, with additional images as needed for full coverage. Current study was also evaluated with a Computer Aided Detection (CAD) system. DENSITY A. The breasts are almost entirely fatty. MAMMOGRAPHY FINDINGS Bilateral: No suspicious mass, asymmetry, microcalcification, or other abnormality seen. IMPRESSION: * No evidence of malignancy. RECOMMENDATIONS Bilateral * Annual screening mammography. OVERALL ASSESSMENT CATEGORY BI-RADS-1: Negative. The [employer] recommends annual screening mammography beginning at age 40 for women with average risk of breast cancer. ELECTRONICALLY SIGNED: Kya Clay M.D. on 07/31/2025 at 06:12:19 PM PT Interpreting Station ID: [id number]
== END ==
LOC: MAMMO 12:56
PROVIDERS: PCP Family Medicine; Referring Provider Family Medicine; Visit Provider Family Medicine
DX: Z12.31 Encounter for screening mammogram for malignant neoplasm of breast (principal); R92.313 Mammographic fatty tissue density, bilateral breasts; Z80.3 Family history of malignant neoplasm of breast
CPT/HCPCS: 77063; 77067